=== PATIENT | male | born 1970 | race Hispanic/Latino ===

== ENCOUNTER → 2017-04-09 | Day surgery (SDC) | payer OTHER, MEDICARE ==
[~2017-04-09] VITALS: Ht 175.3 cm; Wt 161.9 kg
[~2017-04-09] MED LIST: AMLODIPINE BES2.5 M1 PO; FISH OIL PO; GINKO BILOBA60 MG PO; GREEN TEA150 MG PO; IBUPROFEN600 M1 PO; METFORMIN HCL500 M3 PO; MILK THISTLE PO; PROAIR HFA0.09 MG/Ac INH; PROVENTIL HFA6.7 GM INH; RASPBERRY KETONES PO; ROXICODONE5 MG PO; VITAMIN D2000 UNI1 PO; [UNRECOGNIZED DRUG - OTHER] PO
--- NOTE | 2017-04-09 11:47 | Operative Report ---
Operative/Inv Procedure Report Surgery Date: 04/09/17 Name of Procedure: #1 incision and drainage of chest wall abscess, deep tracking #2 excision with intermediate complexity closure of left inguinal hidradenitis #3 excision with intermediate complexity closure of right thigh hidradenitis Pre-Operative Diagnosis: Abscess chest wall hidradenitis of left inguinal and right thigh Post-Operative Diagnosis: Same Estimated Blood Loss: less than 50ml Surgeon/Food Technician: Miguel DAVIES,Maik Vega Anesthesia: general endotracheal tube Operative/Procedure Note Note: Patient was placed on the OR table supine, after successful induction of general anesthesia pt was repositioned in frog-leg bilaterally and then his chest left inguinal and right upper inner thigh were clipped prepped and draped in the usual sterile fashion. The indurated / erythematous peaking chest wall abscess in the middle of the sternum was first injected with local anesthetic both superficially and deep then we made a 2-1/2 cm horizontal incision and used blunt and sharp dissection and cautery to open up the abscess cavity which tracked deep inferiorly into a second compartment which we had to open we used a curette there was pus the inner surfaces of the wound were oozing blood we controlled it with Surgicel and cautery the area of the abscess loculations and about 7 cm vertically and about 4 horizontally, we did use the curet but no excision was done and this spot, then this was packed with iodoform gauze tape and the incision was shortened with subcuticular interrupted 2-0 Vicryl sutures on each and leaving the middle open. We addressed the left inguinal region there were 2 draining sinuses in line we injected local anesthetic and excised both of these, the incisions were about 1-1/2-2 cm each, they communicated underneath we used a curette to open them up excise some acute and chronic granulation tissue we also put some iodoform gauze tape inside and put a few reapproximating sutures 3-0 Vicryl subcuticular leaving an opening for the wick. Then we addressed the right thigh it was similar to the inguinal, there was a linear grouping of skin fistulas, we injected local anesthetic and then made an incision which included some skin into this mass of granulation and scar this one was pretty focal didn't track deep but there was a lot of scar, we had to use Surgicel and some deep interrupted 3-0 Vicryl sutures for hemostasis, this was not near the saphenous vein, we packed this also with iodoform gauze tape we put in a few reapproximating subdermal sutures 3-0 Vicryl over the iodoform gauze packing and then all 3 incisions were dressed with a little bit of bacitracin on the skin around then fluff gauze and then tape. EBL minimal lap and sponge counts correct wound expectancy was infected for the chest abscess but clean contaminated for the 2 draining hidradenitis areas, IV fluids crystalloid complications none patient tolerated the procedure well was awakened extubated and returned to the recovery room in satisfactory condition.
== END ==
LOC: STS 02:50
DX: L73.2 Hidradenitis suppurativa (principal); L72.0 Epidermal cyst; J45.909 Unspecified asthma, uncomplicated; F17.200 Nicotine dependence, unspecified, uncomplicated; E11.9 Type 2 diabetes mellitus without complications; Z79.84 Long term (current) use of oral hypoglycemic drugs
CPT/HCPCS: J0131; J0690; J2250; J2405